=== PATIENT | female | born 1980 | race Caucasian/White ===

== ENCOUNTER 2019-03-26 14:56 | Outpatient (REF) | payer OTHER, SELFPAY ==
[2019-03-26 18:56] LABS: White Blood Cell Count 5.38 k/cumm (4.4-10.8)
[2019-03-26 18:57] LABS: HGB 14.1 g/dL (12.0-15.5); Mean Corp. HGB Concentration 32.8 g/dL (32.0-36.0); Mean Corpuscular Volume 88.5 fL (80-95); Mean Platelet Volume 10.1 fL (8.0-11.0); Platelet Count 263 x1000/uL (130-400); RBC 4.86 m/cumm (4.00-5.20); RBC Distribution Width 12.2 % (11.7-14.6)
[2019-03-26 20:26] LABS: Anion Gap 7.9 mmol/L (3-11); BUN 20 mg/dL (7-18); CO2 27.1 mmol/L (21.0-32.0); Calcium 8.5 mg/dL (8.5-10.1); Chloride 104 mmol/L (98-107); Glucose 83 mg/dL (70-100); Potassium 4.6 mmol/L (3.5-5.1); Sodium 139 mmol/L (136-145); TSH (W/Ref FT4) 0.64 uIU/mL (0.36-3.74)
[2019-03-28 10:56] LABS: Lyme Ab w Rflx to Lyme Confirm Positive
[2019-03-29 15:42] LABS: IgG Immunoblot Negative; IgM Immunoblot Positive; Immunoblot Interpretation SEE COMMENTS
== END 2019-03-26 15:16 ==
LOC: NCHCN 14:56
PROVIDERS: PCP Nurse Practitioner Family; Visit Provider Nurse Practitioner Family
DX: M54.2 Cervicalgia (principal); R53.83 Other fatigue; L03.115 Cellulitis of right lower limb
CPT/HCPCS: 80048; 85027; 86617; 84443; 86618

== ENCOUNTER 2021-02-16 09:12 | Emergency (ER) | payer OTHER, SELFPAY ==
[2021-02-16] VITALS (44 sets, daily range): BP systolic 101–114; BP diastolic 61–79; PULSE 60–79; RESP 12–22; TEMP 36.6; O2SAT 96–100
--- NOTE | 2021-02-16 09:00 | RT.EKG_ITS ---
APPROVED REPORT Exam: Resting ECG Reason for Exam: chest pain Patient Location: E HR:81 bpm ECG Measurements Heart Rate 81 AXIS AR 142 P 74 QRSd 81 QRS 68 QT 371 T 49 QTc 431 Conclusion Sinus rhythm...normal P axis, V-rate 60- 99. No STEMI. I have reviewed and interpreted ECG and agree with software generated interpretation.
--- NOTE | 2021-02-16 09:15 | DI.RAD_ITS ---
Exam(s) XR CHEST 2V PA LATERAL EXAM: XR CHEST 2V PA LATERAL CLINICAL HISTORY: Chest pain TECHNIQUE: 2D digital imaging was performed. COMPARISON: No exams were available for comparison FINDINGS: MEDIASTINUM: Normal. HEART: Normal. PULMONARY VASCULATURE: Normal. LUNGS: Clear. PLEURAL SPACE: No pleural effusion or pneumothorax. BONE:Within normal limits for the patient's age. OTHER FINDINGS:Normal. IMPRESSION: No acute pulmonary findings. DATA REPOSITORY: RADIATION DOSE DELIVERED:
--- NOTE | 2021-02-16 09:33 | ED.GENADUL_ITS ---
Discharge Plan Disposition Patient Disposition: HOME Condition: Improving Discharge Details Clinical Impression: Anterior chest wall pain, Ulcerative colitis Primary Care Provider: Noelle Carrera ED Provider: Sammi Espinosa Home Meds and New Rx's Prescriptions: New sucralfate [Carafate] 100 mg/mL suspension 10 ml PO QAC PRNQty: 200 RF: 0 No Action tretinoin 45 GM gel 45 gm Topical DAILY RF: 0 metronidazole 45 GM cream 45 gm Topical DAILY RF: 0 tretinoin 0.025 % Cream 1 applic TOPICAL BID PRNRF: 0 acetaminophen [Tylenol Extra Strength] 500 mg Tablet 1,000 mg PO PRN PRNRF: 0 Discharge Instructions Instructions: Chest Wall Pain (ED) Additional Instructions: At this time your cardiac work-up today is reassuring. Your symptoms are more consistent with musculoskeletal and/or acid reflux related to his colitis flare. Please return to the ED or be seen sooner for any worsening chest pain, shortness of breath, nausea vomiting, fever or any concerns. A prescription for Carafate suspension was sent to the pharmacy we have on file for you take this medication before meals and as needed for colitis symptoms. Follow up with primary care provider in 3-5 days. Return to ED sooner if any worsening or concerns. Increase oral fluids. Please take Tylenol with food every 4-6 hours as needed for pain and swelling. Referrals: Noelle Carrera, PUBLIC SAFETY TELECOMMUNICATOR [Primary Care Provider] - Discharge Data Discharge Date/Time-TO BE ENTERED AT DEPARTURE: 02/16/21 14:00 Medical Decision Making 40-year-old female with a history of ulcerative colitis presents to the ER with chief complaint of midsternal chest pain which she describes as sharp. She reports chest pain began after waking up this morning approximately 6 AM. Pain increases with movement and deep breathing. She reports a recent colitis flare over the last 2 weeks. She did have bloody diarrhea this weekend. She is not currently being treated for the colitis. She denies any nausea, vomiting, fever, chills denies any abdominal pain currently. She is not currently taking control pills. Denies any recent long trips in a car or plane. She does endorse marijuana and alcohol 2 days ago. She did not take any medications prior to arrival. She does have an allergy to aspirin, penicillin, and sulfa. At this time cardiac work-up ordered including troponin EKG CBC CMP D-dimer, urinalysis and urine , chest x-ray. Aspirin not given due to listed allergy. I did confirm this with patient. EKG was reviewed by Stacie FOY attending, please see her official review and report. No old EKG available. CBC is largely unremarkable no leukocytosis, monocytes are slightly elevated at 1.02, initial troponin within normal limits CMP within normal limits no electrolyte abnormality. Small bilirubin. No leukocytes no nitrite. Culture not indicated at this time due to squamous contamination. Lipase added onto labs, D-dimer is pending at this time. Normal saline 1 L ordered, Pepcid 20 mg IV piggyback, Zofran 4 mg, Carafate 1 g p.o. Differential diagnosis includes but not limited to CAD, GERD, anxiety, PE, musculoskeletal pain. CLINICAL HISTORY: Chest pain TECHNIQUE: 2D digital imaging was performed. COMPARISON: No exams were available for comparison FINDINGS: MEDIASTINUM: Normal. HEART: Normal. PULMONARY VASCULATURE: Normal. LUNGS: Clear. PLEURAL SPACE: No pleural effusion or pneumothorax. BONE:Within normal limits for the patient's age. OTHER FINDINGS:Normal. IMPRESSION: No acute pulmonary findings. D-dimer returned slightly elevated at 770 I do suspect that this is due to the colitis flare. However CTA chest rule out PE ordered. Patient still complaining of 4 out of 10 midsternal chest pain worse with movement. 0.5 mg of lorazepam ordered with a GI cocktail. Patient did inform me that she was diagnosed with Lyme disease in 2019. CT chest negative, discussed results with patient who verbalized understanding. At this time I do believe this is musculoskeletal and or GERD related to the ulcerative colitis flare. Patient has had 2 serial troponins within normal limits. Prescribed sucralfate suspension. Discussed strict return instructions and follow-up with PCP patient verbalized understanding. FINDINGS: Tracheobronchial tree: Patent where visualized. Pulmonary parenchyma: No consolidation or dominant measurable mass. No architectural distortion. Pulmonary Arteries: No evidence of filling defect to suggest pulmonary emboli. Mediastinum and Alyssa: No dominant adenopathy or fluid collection. Visualized thyroid gland: Unremarkable. Pleura: No effusion or pneumothorax. Heart: The heart is not dilated. No coronary artery calcifications are seen. No pericardial effusion. Aorta: Thoracic aorta non-dilated. No evidence of dissection. Upper abdomen: Unremarkable. Soft tissues: Unremarkable. Bones: Normal. IMPRESSION: 1. No evidence of pulmonary embolism, thoracic aortic dissection or aneurysm. 2. Results of this exam have been verbally communicated with provider. HPI General Mode of arrival: ambulatory . Date/Time Provider Initiated Documentation: 02/16/21 09:18 . Limitations to Documentation: no limitations . Information obtained by: patient and RN notes reviewed . HPI Narrative: 40-year-old female with a history of ulcerative colitis presents to the ER with chief complaint of midsternal chest pain which she describes as sharp. She reports chest pain began after waking up this morning approximately 6 AM. Pain increases with movement and deep breathing. She reports a recent colitis flare over the last 2 weeks. She did have bloody diarrhea this weekend. She is not currently being treated for the colitis. She denies any nausea, vomiting, fever, chills denies any abdominal pain currently. She is not currently taking control pills. Denies any recent long trips in a car or plane. She does endorse marijuana and alcohol 2 days ago. She did not take any medications prior to arrival. She does have an allergy to aspirin, penicillin, and sulfa. Related Data Home Medications Medication Instructions Recorded Confirmed tretinoin 45 gm TOPICAL DAILY script 08/04/15 02/16/21 metronidazole 45 gm TOPICAL DAILY script 06/29/16 02/16/21 acetaminophen [Tylenol Extra 1,000 mg PO PRN PRN 02/16/21 02/16/21 Strength] sucralfate [Carafate] 10 ml PO QAC PRN #200 ml 02/16/21 tretinoin 1 applic TOPICAL BID PRN 02/16/21 02/16/21 Previous Rx's Medication Instructions Recorded sucralfate [Carafate] 10 ml PO QAC PRN #200 ml 02/16/21 Allergies Allergy/AdvReac Type Severity Reaction Status Date / Time aspirin Allergy Severe faint, Verified 02/16/21 09:26 shaky, weak Penicillins Allergy Severe THROAT Unverified 02/16/21 09:26 SWELLING egg Allergy Intermediate vomiting Verified 02/16/21 09:26 Sulfa (Sulfonamide Allergy UNKNOWN Unverified 02/16/21 09:26 Antibiotics) CILLINS Allergy Severe THROAT Uncoded 02/16/21 09:26 SWELLING General Stated Complaint: Chest Pain RIANNA: 2 Review of Systems Narrative: Constitutional: Negative for weight loss, alert and oriented, well groomed, normal body habitus, appears anxious. HEENT: Denies trauma, headaches, blurry vision, nasal discharge, sore throat, trouble swallowing. Chest: Denies palpitations, irregular rhythm, hypertension. Positive midsternal chest pain worse with movement and deep breathing. Respiratory: Denies Shortness of breath, cough, hemoptysis. GI: Denies abdominal pain, nausea, vomiting, constipation. Positive bloody diarrhea for the last 2 weeks. History of ulcerative colitis. : Denies dysuria, hematuria, flank pain, rectal bleeding. Neuro: Denies dizziness, blurry vision, weakness, syncope, headache or facial numbness. Hematologic: Denies easy bruising, intolerance to heat or cold, hair loss. FORMERLY [facility], 1928–1983 Medical History Acne vulgaris BMI 29.0-29.9,adult Contraception, device intrauterine 09/09/15 Mirena IUD. Headache daily, more prominent since Mirena IUD inserted. Ulcerative colitis Family History maternal aunt Personal history of malignant neoplasm Breast CA Social History Smoking/Tobacco Use Status: Former Tobacco Use Smoking risk assessment performed?: Yes Alcohol Intake: current Alcohol Intake frequency: 0-2 drinks per day Drug use: Occasionally Substance use type: marijuana Do you feel safe at home: Yes Do you feel safe in your relationship?: Yes Exam Narrative Exam Narrative: Constitutional: Alert and oriented x3. Appears stated age. Normal body habitus. Head: Normocephalic, no trauma. Eyes: Pupils PERRLA, Red reflex noted, EOM's intact. Eyelids symmetrical without lesions, discharge, or swelling. ENT: Bilateral TM's WNL, External ear normal to inspection, no mastoid TTP, swelling, or erythema, Nasal turbinates WNL, no nasal discharge. Normal dentition, Posterior pharynx WNL, no exudate. Chest: RRR, Normal S1, S2, distal pulses intact. Resp: Lungs clear to auscultation bilaterally, no wheezes, rales, or rhonchi. Musculoskeletal: Normal gait, 5/5 strength to all four extremities. Skin: No suspicious rashes or lesions. Capillary refill less than 2 sec. Neurologic: Cranial nerves II-XII intact. Alert and oriented x 3. DTR's intact. Hematologic/Lymphatic: No ecchymosis, no lymphadenopathy. Course Vital Signs Vital signs: Vital Signs Temperature 36.6 C 02/16/21 09:21 Pulse 79 02/16/21 09:21 Respiratory Rate 17 02/16/21 09:21 Blood Pressure 111/72 02/16/21 09:21 Pulse Oximetry 100 02/16/21 09:21 Temperature 36.6 C 02/16/21 09:21 Temperature Source Skin 02/16/21 09:21 Pulse 70 02/16/21 09:29 Pulse 69 02/16/21 09:30 Respiratory Rate 12 02/16/21 09:30 Respiratory Effort Non-Labored 02/16/21 09:24 Respiratory Depth Normal 02/16/21 09:24 Respiratory Pattern Normal 02/16/21 09:24 Blood Pressure 101/79 02/16/21 09:29 Blood Pressure Mean 83 02/16/21 09:29 Blood Pressure Position Supine 02/16/21 09:21 Pulse Oximetry 100 02/16/21 09:30 Oxygen Delivery Method Room Air 02/16/21 09:21 Oxygen Flow Rate 0 02/16/21 09:21 Pain Level 4 02/16/21 09:24
[2021-02-16 09:35] LABS: Abs Immature Grans 0.02 10^3/uL (0.0-0.06); Absolute Basophil Count 0.03 10^3/uL (0.0-0.2); Absolute Eosinophil Count 0.41 10^3/uL (0.0-0.7); Absolute Lymphocyte Count 2.15 10^3/uL (1.2-3.4); Absolute Monocyte Count 1.02 10^3/uL (0.1-0.8); Absolute Neutrophil Count 3.88 10^3/uL (1.2-6.7); Basophils % 0.4; Eosinophils % 5.5; HCT 43.9 % (36.0-46.0); HGB 14.4 g/dL (11.2-15.7); Immature Grans % 0.3; Lymphocytes % 28.6; MCHC 32.8 % (32.0-36.0); MCV 91.5 fL (80-95); MPV 9.1 fL (8.0-11.0); Monocytes % 13.6; Neutrophils % 51.6; Nucleated RBC 0 %; Platelet Count 272 10^3/uL (130-400); RDW 11.9 % (11.7-14.6); WBC 7.51 10^3/uL (4.4-10.8)
[2021-02-16 09:54] LABS: ALT 34 U/L (14-59); AST 18 U/L (15-37); Albumin 3.6 g/dL (3.4-5.0); Alkaline Phosphatase 71 U/L (46-116); Anion Gap 7.8 mmol/L (3-11); BUN 11 mg/dL (7-18); Bilirubin, Total 0.4 mg/dL (0.2-1.0); CO2 30.2 mmol/L (21.0-32.0); CREATININE 0.9 mg/dL (0.55-1.02); Calcium 8.5 mg/dL (8.5-10.1); Chloride 100 mmol/L (98-107); Glucose 94 mg/dL (74-106); Potassium 3.5 mmol/L (3.5-5.1); Sodium 138 mmol/L (136-145); Total Protein 7.7 g/dL (6.4-8.2); Troponin I < 0.05 ng/mL (<0.06)
[2021-02-16 10:07] LABS: Bilirubin Small (Negative); Blood Negative (Negative); Clarity Clear (Clear); Glucose Negative (Negative); Ketones 15 mg/dL (Negative); Leukocyte Esterase Negative (Negative); Nitrite Negative (Negative); Specific Gravity >= 1.030 (1.005-1.025); Urobilinogen 0.2 EU/dL (Up TO 0.2)
[2021-02-16 10:14] LABS: Bacteria Rare HPF (Negative); C & S Indicated? No/Sq. Contamination; Casts 0-2 Hyaline LPF (Negative); Crystals Negative HPF (Negative); Epithelial Cells Many HPF (Negative); Mucus Moderate (Negative); RBC Negative HPF (0-2); WBC Negative HPF (0-5)
[2021-02-16] MEDS: Sucralfate 1 GM TAB PO (10:27)
[2021-02-16] MEDS: Normal Saline 1,000 ML 1000 ML IV (10:27)
[2021-02-16] MEDS: FAMOTIDINE 20 MG/50 ML BAG 200 MG IVPB (10:27)
[2021-02-16 10:30] LABS: Lipase 274 U/L (73-393)
[2021-02-16 10:49] LABS: D-Dimer 770 ng/mlFEU (<500)
[2021-02-16] MEDS: LORazepam 2 MG/ML VIAL 0.5 MG IVP (11:35)
--- NOTE | 2021-02-16 11:50 | DI.CT_ITS ---
Exam(s) CT CHEST PE CTA EXAM: CT CHEST PE CTA CLINICAL HISTORY: R/O PE, Chest Pain, elevated d-dimer. TECHNIQUE: Imaging Protocol: Axial CT angiography was performed with multi-slice acquisition and mu lti-planar and/or 3D reconstructions. CONTRAST MATERIAL: Intravenous: Omnipaque 350 Contrast volume:100 mL COMPARISON: CR XR CHEST 2V PA LATERAL from 02/16/2021 FINDINGS: Tracheobronchial tree: Patent where visualized. Pulmonary parenchyma: No consolidation or dominant measurable mass. No architectural distortion. Pulmonary Arteries: No evidence of filling defect to suggest pulmonary emboli. Mediastinum and Alyssa: No dominant adenopathy or fluid collection. Visualized thyroid gland: Unremarkable. Pleura: No effusion or pneumothorax. Heart: The heart is not dilated. No coronary artery calcifications are seen. No pericardial effusion. Aorta: Thoracic aorta non-dilated. No evidence of dissection. Upper abdomen: Unremarkable. Soft tissues: Unremarkable. Bones: Normal. IMPRESSION: 1. No evidence of pulmonary embolism, thoracic aortic dissection or aneurysm. 2. Results of this exam have been verbally communicated with provider. RADIATION DOSE DELIVERED: 407.08mGy.cm Total DLP DATA REPOSITORY: All CT scans at this facility are submitted to the National Radiology Data Registry (NRDR) Dose Index Registry (DIR) with the [employer] (A[employer]). RADIATION OPTIMIZATION: All CT scans at this facility use at least one of these dose optimization te chniques: automated exposure control; mA and/or kV adjustment per patient size (includes targeted exa ms where dose is matched to clinical indication); or iterative reconstruction.
[2021-02-16] MEDS: Omnipaque 350 MG/ML 100 ML BTL IJ (12:02)
[2021-02-16] MEDS: Normal Saline - Diluent 50 ML VIAL IV (12:02)
[2021-02-16 12:50] LABS: Troponin I < 0.05 ng/mL (<0.06)
--- NOTE | 2021-02-16 13:00 | RT.EKG_ITS ---
APPROVED REPORT Exam: Resting ECG Reason for Exam: chest pain Patient Location: E HR:61 bpm ECG Measurements Heart Rate 61 AXIS NV 152 P 60 QRSd 70 QRS 69 QT 416 T 61 QTc 419 Conclusion Sinus rhythm...normal P axis, V-rate 60- 99 Consider anteroseptal infarct...Q >30mS, dimin R, V1-V2. No STEMI. No change from previous. I have reviewed and interpreted ECG and agree with software generated interpretation.
== END 2021-02-16 14:00 | disposition home or self-care (01) ==
PROVIDERS: Emergency Provider Registered Nurse Emergency; PCP Nurse Practitioner Family
DX: R07.89 Other chest pain (principal); K51.90 Ulcerative colitis, unspecified, without complications
CPT/HCPCS: 36415; 71275; 80053; 81025; 83690; 93005; 96361; 96365; 96375; 99285; 71046; 81003; 81015; 83735; 84484; 85025; 85379; 93010; 99284; J2060; J3490

== ENCOUNTER 2021-05-14 10:09 | Outpatient (REF) | payer OTHER, SELFPAY ==
--- NOTE | 2021-05-14 09:45 | PAPFT_PTH ---
PATIENT: Caryn Andrew LOC: [facility] U#:[id number] AGE/SX: 40/F ROOM: RE05/14/[address]: MONIE May : 1980 BED: DIS: 05/14/2021 SPEC #: [id number] RECD: 05/14/21 12:53 STATUS: CAMRON REQ #: [id number] KRYSTAL: 05/14/21 09:[address]: Nelly Castro DEPT: [facility] Cytology RECD BY: Divina Early ENTERED: 05/14/21 12:53 SP TYPE: PAPFT OTHR DR: Noelle Carrera Tissues: 1 - CX/ENDOCX FOR PAP SMEARS Procedures: PAP THIN PREP/UVM Screening HPV DNA PROBE Comments: [id number]
== END 2021-05-14 10:10 | disposition home or self-care (01) ==
LOC: LBN 10:09
PROVIDERS: PCP Nurse Practitioner Family; Visit Provider Nurse Practitioner Family
DX: Z12.4 Encounter for screening for malignant neoplasm of cervix (principal); Z11.51 Encounter for screening for human papillomavirus (HPV)
CPT/HCPCS: 88142; 87624

== ENCOUNTER 2022-08-25 02:42 | Outpatient (CLI) | payer OTHER, SELFPAY ==
--- NOTE | 2022-08-25 | DI.MAMMO_ITS ---
Exam(s) MAMMO SCREENING EXAM: MAMMO SCREENING CLINICAL HISTORY: SCREENING, Z12.39 TECHNIQUE: Bilateral full field digital CC and MLO mammographic images were obtained with 3D tomosyn thesis and utilizing computer aided detection (CAD). COMPARISON: None. FINDINGS: Masses/Architectural Distortion: None seen. Microcalcifications: No suspicious pleomorphic-type are seen. Skin Thickening/Nipple Retraction: None. IMPRESSION: 1. No significant interval change with no specific features of malignancy noted. 2. Unless there is more urgent need, screening mammography is recommended, as per [employer] guidelines. BI-RADS Category 1 - Negative Breast Density - Category C - Heterogeneously dense Breast density category C or D implies that the patient has dense breast tissue. Dense breast tissue is very common and is not abnormal but dense breast tissue can make it harder to find cancer on a ma mmogram. Also, dense breast tissue may increase their breast cancer risk. This information about the result of the mammogram report was provided to the patient to raise their awareness. Use this report when you speak with the patient about their risks for breast cancer, which includes their family hist ory. At that time, you may recommend for more screening tests (Ultrasound or MRI) as they might be us eful based on their risk. A negative radiographic report should not delay biopsy if a dominant or clinically suspicious mass is present. Up to ten percent of cancers are not identified on mammography. A negative report may reinforce clinical impression. Adenosis and dense breasts may obscure an underlying neoplasm. False positive reports average 6 to 10%. Patient will receive a letter notifying them of these results.
== END 2022-08-25 03:02 ==
LOC: DI 02:42
PROVIDERS: PCP Nurse Practitioner Family; Visit Provider Nurse Practitioner Women's Health
DX: Z12.31 Encounter for screening mammogram for malignant neoplasm of breast (principal); R92.8 Other abnormal and inconclusive findings on diagnostic imaging of breast
CPT/HCPCS: 77063; 77067

== ENCOUNTER 2022-10-20 17:46 | Outpatient (REF) | payer OTHER, SELFPAY ==
[2022-10-20 18:36] LABS: Abs Immature Grans 0.01 10^3/uL (0.0-0.06); Absolute Basophil Count 0.04 10^3/uL (0.0-0.2); Absolute Eosinophil Count 0.31 10^3/uL (0.0-0.7); Absolute Lymphocyte Count 2.12 10^3/uL (1.2-3.4); Absolute Neutrophil Count 4.29 10^3/uL (1.2-6.7); Basophils % 0.5; Eosinophils % 4.1; HCT 41.7 % (36.0-46.0); HGB 14.2 g/dL (11.2-15.7); Immature Grans % 0.1; MCH 30.4 pg (27.0-33.0); MCHC 34.1 % (32.0-36.0); MCV 89 fL (80-95); MPV 10.2 fL (8.0-11.0); Monocytes % 10.6; Neutrophils % 56.7; Platelet Count 251 10^3/uL (130-400); RBC 4.67 10^6/uL (3.93-5.22); RDW 12.5 % (11.7-14.6); RDW-SD 40.8 fL; WBC 7.57 10^3/uL (4.4-10.8)
[2022-10-20 18:47] LABS: Iron 79 ug/dL (50-170); Total Iron Binding Capacity 313 ug/dL (250-450); Transferrin Sat 25 % (15-50)
[2022-10-20 18:49] LABS: Hemoglobin A1C 5.2 % (<5.7)
[2022-10-20 18:55] LABS: ALT 27 U/L (14-59); AST 19 U/L (15-37); Alkaline Phosphatase 61 U/L (46-116); BUN 15 mg/dL (7-18); Bilirubin, Total 0.3 mg/dL (0.2-1.0); CREATININE 0.8 mg/dL (0.55-1.02); Chloride 105 mmol/L (98-107); Estimated GFR 95.46 (mL/min/1.73m2); Glucose 85 mg/dL (74-106); Potassium 4.2 mmol/L (3.5-5.1); Sodium 141 mmol/L (136-145); Total Protein 7.2 g/dL (6.4-8.2)
[2022-10-20 19:07] LABS: Vitamin D 25 Total 21.3 ng/mL (30-100)
[2022-10-20 19:21] LABS: FREE T4 1.04 ng/dL (0.76-1.46)
== END 2022-10-20 17:47 | disposition home or self-care (01) ==
LOC: NCHCN 17:46
PROVIDERS: PCP Nurse Practitioner Family; Visit Provider Nurse Practitioner Family
DX: R53.83 Other fatigue (principal); R63.5 Abnormal weight gain; Z83.2 Family history of diseases of the blood and blood-forming organs and certain disorders involving the immune mechanism; E55.9 Vitamin D deficiency, unspecified; Z13.1 Encounter for screening for diabetes mellitus; K51.90 Ulcerative colitis, unspecified, without complications
CPT/HCPCS: 80053; 82306; 83036; 83540; 83550; 84439; 84443; 85025

== ENCOUNTER 2024-11-26 14:21 | Outpatient (REF) | payer MEDICAID, SELFPAY ==
--- NOTE | 2024-11-26 14:00 | PAPFT_PTH ---
PATIENT: Caryn Andrew LOC: [facility] U#:[id number] AGE/SX: 44/F ROOM: RE11/26/[address]: Alpa Emanuel NP : 1980 BED: DIS: 11/26/2024 SPEC #: [id number] RECD: 11/26/24 17:44 STATUS: CAMRON REQ #: [id number] KRYSTAL: 11/26/24 14:[address]: Adelfo GALLAGHER,Alpa DEPT: [facility] Cytology RECD BY: Divina Early ENTERED: 11/26/24 17:44 SP TYPE: PAPFT OTHR DR: Noelle Carrera Tissues: 1 - CX/ENDOCX FOR PAP SMEARS Procedures: PAP THIN PREP/UVM Screening HPV DNA PROBE Comments: [id number] (HPV 16 & 18/45)
== END 2024-11-26 14:22 | disposition home or self-care (01) ==
LOC: LBN 14:21
PROVIDERS: PCP Nurse Practitioner Family; Visit Provider Nurse Practitioner Women's Health
DX: Z12.4 Encounter for screening for malignant neoplasm of cervix (principal); R87.619 Unspecified abnormal cytological findings in specimens from cervix uteri
CPT/HCPCS: 88142; 87624

== ENCOUNTER 2024-12-09 11:49 | Outpatient (REF) | payer MEDICAID, SELFPAY ==
[2024-12-09 15:45] LABS: Abs Immature Grans 0.02 10^3/uL (0.0-0.06); Absolute Basophil Count 0.07 10^3/uL (0.0-0.2); Absolute Eosinophil Count 0.34 10^3/uL (0.0-0.7); Absolute Lymphocyte Count 2.41 10^3/uL (1.2-3.4); Absolute Monocyte Count 0.63 10^3/uL (0.1-0.8); Absolute Neutrophil Count 4.22 10^3/uL (1.2-6.7); Basophils % 0.9 %; Eosinophils % 4.4 %; HCT 44.4 % (36.0-46.0); HGB 14.7 g/dL (11.2-15.7); Immature Grans % 0.3 %; Lymphocytes % 31.3 %; MCH 30.2 pg (27.0-33.0); MCHC 33.1 % (32.0-36.0); MCV 91 fL (80-95); Monocytes % 8.2 %; Neutrophils % 54.9 %; Platelet Count 276 10^3/uL (130-400); RBC 4.87 10^6/uL (3.93-5.22); RDW 12.9 % (11.7-14.6); RDW-SD 43.3 fL; WBC 7.69 10^3/uL (4.4-10.8)
[2024-12-09 16:16] LABS: ALT 33 U/L (14-59); AST 26 U/L (15-37); Albumin 3.9 g/dL (3.4-5.0); Alkaline Phosphatase 90 U/L (46-116); Anion Gap 10.4 mmol/L (3-11); BUN 16 mg/dL (7-18); Bilirubin, Total 0.3 mg/dL (0.2-1.0); CO2 27.6 mmol/L (21.0-32.0); CREATININE 0.9 mg/dL (0.55-1.02); Calcium 9.4 mg/dL (8.5-10.1); Chloride 104 mmol/L (98-107); Estimated GFR 81.86 (mL/min/1.73m2); Glucose 88 mg/dL (74-106); Potassium 4.8 mmol/L (3.5-5.1); Sodium 142 mmol/L (136-145); TSH (W/Ref FT4) 1.18 uIU/mL (0.36-3.74); Total Protein 7.6 g/dL (6.4-8.2)
== END 2024-12-09 11:50 | disposition home or self-care (01) ==
LOC: NCHCN 11:49
PROVIDERS: PCP Nurse Practitioner Family; Visit Provider Student in an Organized Health Care Education/Training Program
DX: R53.83 Other fatigue (principal)
CPT/HCPCS: 80053; 84443; 85025

== ENCOUNTER 2024-12-19 00:50 | Outpatient (CLI) | payer MEDICAID, SELFPAY ==
--- NOTE | 2024-12-19 14:49 | DI.MAMMO_ITS ---
Exam(s) MAMMO SCREENING EXAM: MAMMO SCREENING CLINICAL HISTORY: screening. TECHNIQUE: Bilateral full field digital CC and MLO mammographic images were obtained with 3D tomosyn thesis and utilizing computer aided detection (CAD). COMPARISON: Prior mammograms were reviewed. FINDINGS: There are no new spiculated masses nor new malignant appearing microcalcification groups. Small group of benign microcalcifications posteriorly in the right breast is unchanged. There is no significant architectural distortion nor skin thickening-retraction. IMPRESSION: No radiographic evidence of malignancy. BI-RADS Category 1 - Negative Breast Density - Category B - There are scattered areas of fibroglandular density. Breast density Category C or D implies that the patient has dense breast tissue. Dense breast tissue can make it harder to find cancer on a mammogram. Dense breast tissue is also associated with an incr eased risk of breast cancer. This information about the result of the mammogram report was provided to the patient to raise their awareness. Use this report when you speak with the patient about their risks for breast cancer, which includes their family history. At that time, you may recommend additional screening tests (Ultrasoun d or MRI) as these tests may add significant information. A negative radiographic report should not delay biopsy if a dominant or clinically suspicious mass is present. Up to ten percent of cancers are not identified on mammography. A negative report may reinforce clinical impression. Adenosis and dense breasts may obscure an underlying neoplasm. False positive reports average 6 to 10%. Patient will receive a letter notifying them of these results.
== END 2024-12-19 01:10 ==
LOC: DI 00:50
PROVIDERS: PCP Nurse Practitioner Family; Visit Provider Nurse Practitioner Women's Health
DX: Z12.31 Encounter for screening mammogram for malignant neoplasm of breast (principal); R92.323 Mammographic fibroglandular density, bilateral breasts
CPT/HCPCS: 77063; 77067

== ENCOUNTER 2025-03-13 10:33 | Outpatient (REF) | payer BC, MEDICAID, SELFPAY ==
[2025-03-16 21:18] LABS: B. miyamotoi PCR Negative (Negative); Babesia divergens/MO-1 Negative (Negative); Ehrlichia muris eauclairensis Negative (Negative)
== END 2025-03-13 10:34 | disposition home or self-care (01) ==
LOC: NCHCN 10:33
PROVIDERS: PCP Nurse Practitioner Family; Visit Provider Student in an Organized Health Care Education/Training Program
DX: W57.XXXA Bitten or stung by nonvenomous insect and other nonvenomous arthropods, initial encounter (principal); T14.90XA Injury, unspecified, initial encounter
CPT/HCPCS: 87798